=== PATIENT | female | born 1990 | race Caucasian/White ===

== ENCOUNTER → 2020-10-12 | Outpatient (CLI) | payer OTHER ==
[~2020-10-12] VITALS: Ht 157.5 cm; Wt 103.8 kg
[~2020-10-12] MED LIST: ZOLOFT 50MG50 MG PO; ZYRTEC 10MG10 MG PO
[2020-10-12 08:46] VITALS: BP 147/79; PULSE 85
[2020-10-12 09:20] VITALS: BP 133/82; PULSE 75
--- NOTE | 2020-10-12 09:46 | NUR ---
PT TAKEN TO PT ENTRANCE AND LEFT WITH
== END ==
LOC: COL.RAD 09-28 13:30
DX: E04.1 Nontoxic single thyroid nodule (principal)

== ENCOUNTER 2021-04-18 13:00 | Outpatient (RCR) | payer OTHER ==
[2021-04-09 14:17] VITALS: BP 121/75; PULSE 94; TEMP 98.8
[2021-04-10 14:10] VITALS: BP 122/82; PULSE 77; TEMP 98.4
[~2021-04-18] VITALS: Ht 157.5 cm; Wt 103.0 kg
[~2021-04-18 13:00] MED LIST changes: +SYNTHROID0.088 MG/T PO
[2021-04-23 14:27] LABS: THYROGLOBULIN AB SCREEN <1.8 IU/mL (<1.8); THYROGLOBULIN TUMOR MARKER 14 ng/mL (())
== END 2021-07-08 ==
LOC: COL.RAD
PROVIDERS: Student in an Organized Health Care Education/Training Program
DX: D49.7 Neoplasm of unspecified behavior of endocrine glands and other parts of nervous system (principal)
CPT/HCPCS: A9517; J3240